=== PATIENT | male | born 1965 | race Caucasian/White ===

== ENCOUNTER 2016-12-11 01:13 | Emergency (ER) | payer OTHER ==
--- NOTE | 2016-12-11 05:33 | ED CLINICAL REPORT ---
Clinical Report - Physicians/Mid Levels [facility] [address] [place] [address] 12/11/2016 1:12 Patient: RUBEN CAMEJO Time Seen: 0116. Arrived- By ambulance. Historian- patient and EMS personnel. HISTORY OF PRESENT ILLNESS Chief Complaint: found down. This occurred today. No toxic symptoms present. No toxic symptoms present. (reports drinking > 6 drinks tonight). No situational problems. Alcohol consumption recently. The symptoms are described as moderate. Has not been depressed or upset. No anger or suicidal thoughts. ([place] needed bag valve mask per EMS. Given 2 mg narcan intranasal which helped.). Similar symptoms previously: None. Recent medical care: Not recently seen/assessed. REVIEW OF SYSTEMS No headache, chest pain, palpitations, abdominal pain or vomiting. No diarrhea, fever or skin rash. All systems otherwise negative, except as recorded above. PAST HISTORY See nurses notes. Medications: Prevacid Oral. Allergies: No Known Drug Allergy. SOCIAL HISTORY Smoker- current status unknown (occasional). Alcohol use. No drug use. Has social support. Has place to stay. FAMILY HISTORY Negative. ADDITIONAL NOTES The nursing notes have been reviewed. PHYSICAL EXAM Vital Signs: 12/11/2016 01:16 BP: 132/88. HR: 99. RR: 16. O2 saturation: 88%. Temp: 98.0 F. Blood pressure normal. Oxygen saturation normal. Appearance: Alert. No acute distress. Eyes: Pupils equal, round and reactive to light. No nystagmus. Extraocular movements normal. ENT: Normal ENT inspection. TM's normal. Pharynx normal. Neck: Normal inspection. Neck supple. No meningeal signs. (no step offs. no crepitus. no tenderness.). CVS: Normal heart rate and rhythm. Heart sounds normal. Pulses normal. Respiratory: No respiratory distress. Breath sounds normal. Abdomen: Soft and nontender. No organomegaly. Back: Normal inspection. Skin: Skin warm and dry. Normal skin color. No rash. Normal skin turgor. Extremities: Extremities exhibit normal ROM. No lower extremity edema. Neuro: Alert. Oriented X 3. Mood/affect normal. Speech normal. Cranial nerves normal (as tested). No cerebellar findings. No motor deficit. No sensory deficit. Reflexes normal. LABS, X-RAYS, AND EKG Laboratory Tests: UA-Culture if indicated: (TINO: 12/11/2016 03:20) ( AzgRcvd 12/11/2016 03:48) Final results Test Result Flag Units (Reference) URINE COLOR YELLOW URINE APPEARANCE CLEAR URINE GLUCOSE NEGATIVE (NEGATIVE) URINE BILIRUBIN NEGATIVE (NEGATIVE) URINE KETONE NEGATIVE (NEGATIVE) URINE SPECIFIC GRAVITY >= 1.030 (1.010-1.030) URINE PH 6.0 (5.0-8.0) URINE PROTEIN NEGATIVE (NEGATIVE) URINE UROBILINOGEN 0.2 EU/dL (0.2-1.0) URINE NITRITE NEGATIVE (NEGATIVE) URINE BLOOD TRACE-INTACT (NEGATIVE) URINE LEUK ESTERASE NEGATIVE (NEGATIVE) URINE RBC 0-1 rbc/hpf (0-1) URINE WBC 0-1 wbc/hpf (0-1) URINE EPITHELIAL CELLS NONE SEEN EPI/hpf (0-5) URINE BACTERIA NONE SEEN (NONE SEEN) URINE COMMENT CULT NOT INDICATED URINE CULTURES ARE SET-UP BASED ON THE FOLLOWING CRITERIA:POSITIVE NITRITEPOSITIVE LEUKOCYTE ESTERASEGREATER THAN 10 WHITE BLOOD CELLSMODERATE (2+) OR GREATER BACTERIA CBC w Diff: (TINO: 12/11/2016 01:25) ( [facility] 12/11/2016 01:41) Final results Test Result Flag Units (Reference) WHITE BLOOD COUNT 10.5 K/uL (4.5-11.5) RED BLOOD COUNT 4.92 M/uL (4.50-5.90) HEMOGLOBIN 16.0 gm/dL (13.5-17.5) HEMATOCRIT 47.1 % (41.0-53.0) MEAN CELL VOLUME 96 fL (80-100) MEAN CORPUSCULAR HGB 33 pg (26-34) MEAN CORPUSCULAR HGB CONC 34 g/dL (31-37) RED CELL DISTRIBUTION WIDTH 15.9 H % (11.6-14.8) PLATELET COUNT 199 K/uL (150-400) NEUTROPHIL % 79.8 H % (50-75) LYMPH % 14.7 L % (25-40) MONO % 4.2 % (3-14) EOSINOPHIL % 0.9 % (0-4) BASOPHIL % 0.4 % (0-2) PT with INR: (TINO: 12/11/2016 01:25) ( MsgRcvd 12/11/2016 01:48) Final results Test Result Flag Units (Reference) INR 0.9 (0.8-1.2) Low Intensity Therapy: INR 1.5-2.0 PT range 18.5-23.1Mod.Intensity Therapy: INR 2.0-3.0 PT range 23.1-31.5High Intensity Therapy: INR 2.5-3.5 PT range 27.4-35.5High Intensity Therapy 2: INR 3.0-4.0 PT range 31.5-39.3 Urine Drug Screen: (TINO: 12/11/2016 03:20) ( MsgRcvd 12/11/2016 03:49) Final results Test Result Flag Units (Reference) AMPHETAMINE/METHAMPHETAMINE NEGATIVE (NEGATIVE) BARBITURATE NEGATIVE (NEGATIVE) BENZODIAZEPINE NEGATIVE (NEGATIVE) CANNABINOID NEGATIVE (NEGATIVE) COCAINE NEGATIVE (NEGATIVE) ECSTASY NEGATIVE (NEGATIVE) METHADONE NEGATIVE (NEGATIVE) OPIATE POSITIVE H (NEGATIVE) The urine drug screen is a qualitative screening test fordrug overdose and abuse. All screen results should beconsidered as presumptive.Drugs screened for are as follows:BenzodiazepinesCocaineAmphetamines/MetamphetaminesTHC (Tetrahydrocannabinol)OpiatesBarbituratesEcstasyMethadonePositive results are unconfirmed. For confirmation, notifythe lab for the specimen to be sent to the reference lab.All confirmations must be performed by a differentmethodology.The ingestion of natural herbal and plant productscontaining Ephedra/Ephedra metabolites can produce in urineone or more substances capable of cross reacting withamphetamine/methamphetamine immunoassays. These testsprovide a preliminary result only. A more specificalternative chemical method must be used to obtain aconfirmed analytical result. Salicylate Level: (TINO: 12/11/2016 01:25) ( MsgRcvd 12/11/2016 01:54) Final results Test Result Flag Units (Reference) SALICYLATE <2.8 L mg/dL (2.8-20) CMP: (TINO: 12/11/2016 01:25) ( MsgRcvd 12/11/2016 03:05) Final results Test Result Flag Units (Reference) GLUCOSE 206 H mg/dL (70-110) BUN 14 mg/dL (7-18) CREATININE 1.5 H mg/dL (0.6-1.3) Estimated GFR 52.87 mL/min Estimated GFR- >60 mL/min Note: Persistent reduction over 3 months in eGFR<60 mL/min/1.73 m2 defines CKD. Patients with eGFR values>=60 mL/min/1.73 m2 may also have CKD if evidence ofpersistent proteinuria. Additional information may be foundat www.kidney.org. SODIUM 139 mmol/L (136-145) POTASSIUM 3.8 mmol/L (3.5-5.1) CHLORIDE 104 mmol/L (98-107) CARBON DIOXIDE 24 mmol/L (21-32) CALCIUM 8.1 L mg/dL (8.5-10.1) TOTAL PROTEIN 7.5 g/dL (6.4-8.2) ALBUMIN 3.9 g/dL (3.3-5.0) BILIRUBIN, TOTAL 0.3 mg/dL (0.0-1.0) ALKALINE PHOSPHATASE 49 U/L (46-116) AST (SGOT) 57 H U/L (15-37) ALT (SGPT) 91 H U/L (12-78) ACETAMINOPHEN < 2.0 L ug/mL (10-30) ETHYL ALCOHOL 82 H mg/dL (3-10) THYROID STIMULATING HORMONE 5.823 H uIU/mL (0.34-3.74) . PROGRESS AND PROCEDURES Course of Care: The patient is a pleasant 51-year-old male with no pertinent past medical history presenting for evaluation of altered mental status. The patient was found in a state requiring bag valve mask. Patient was also given Narcan in the field. Per EMS, patient was about to be intubated howeverrecovered prior to needing intubation. Signs and symptoms are consistent with opioid type overdose. Patient will be monitored here in the hospital for further worsening of his symptoms and possible re-dosing of the Narcan. Patient is agreeable to the treatment and plan. Patient however doesdeny any illicit substances except for alcohol. Urine drug screen will be ordered for evaluation of possibleothercoingestants. We'll also orderelectrolytes andtoxicpanel. Workup does not show any acute abnormalities except for slightly elevated alcohol level as well as oprug screen. This is likely the patient's cause for his altered mental status and respiratory failure. Patient isalert and oriented and did not have any signs of respiratory depression while here in the emergency department. After monitoring patient here in the emergency department, patient has been deemedstable for outpatient management. Had long discussion with patient in regards to substance abuse and potentially life threateningexposure that occurred today. Explained to patient the dangers of narcotics and opioid medications. Patient is agreeable to treatment plan. CLINICAL IMPRESSION Accidental multi-drug overdose (alcohol and narcotics). 12/11/2016 05:27 BP: 97/50. HR: 84. RR: 16. O2 saturation: 95%. Blood pressure normal. Oxygen saturation normal. Mild dehydration (acute). respiratory failure, acute resolved. INSTRUCTIONS Warnings: GENERAL WARNINGS: Return or contact your physician immediately if your condition worsens or changes unexpectedly, if not improving as expected, or if other problems arise. Specifically return if pain, vomiting, bleeding, breathing difficulty or fever. Your Current Medications: CONTINUE TAKING THE FOLLOWING MEDICATIONS: Prevacid Oral. Follow-up: Return to the emergency department as needed. Follow up with your doctor in three days. Reason for referral: recheck today's concerns. Summary of care provided to patient via paper. Screening today revealed the patient's blood pressure to be in the normal range. The patient should follow up with a primary care provider for blood pressure management. Understanding of the discharge instructions verbalized by patient. (Electronically signed by Suman Fowler Dr. 12/11/2016 8:36)
--- NOTE | 2016-12-11 05:34 | ED ORDER SUMMARY ---
..... Patient: RUBEN CAMEJO OrderSheet [facility] VisitID: [id number] [address] [place] [address] 51y, M Registration Date/Time: 12/11/2016 ORDER SHEET Weight: 104.7 kg (stated) Allergies: No Known Drug Allergy GENERAL ORDERS: CBC w Diff Urgent (:12/11/2016 Omar Garsia) (Ack 1:26 AMcQuoid ER Tech1) (1:30 EInderbitzen R.N.) CMP Urgent (:12/11/2016 Omar Garsia) (Ack 1:26 AMcQuoid ER Tech1) (1:30 EInderbitzen R.N.) Urine Drug Screen Urgent (12/11/2016 Omar Garsia) (Ack 1:26 AMcQuoid ER Tech1) (3:23 EInderbitzen R.N.) UA-Culture if indicated Urgent (12/11/2016 Omar Garsia) (Ack 1:26 AMcQuoid ER Tech1) (3:23 EInderbitzen R.N.) PT with INR Urgent (12/11/2016 Omar Garsia) (Ack 1:26 AMcQuoid ER Tech1) (1:30 EInderbitzen R.N.) Salicylate Level Urgent (:12/11/2016 Omar Garsia) (Ack 1:26 AMcQuoid ER Tech1) (1:30 EInderbitzen R.N.) TSH Urgent (:12/11/2016 Omar Garsia) (Ack 1:26 AMcQuoid ER Tech1) (1:30 EInderbitzen R.N.) Acetaminophen Level Urgent (12/11/2016 Omar Garsia) (Ack 1:26 AMcQuoid ER Tech1) (1:30 EInderbitzen R.N.) Ethyl Alcohol Urgent (12/11/2016 Omar Garsia) (Ack 1:26 AMcQuoid ER Tech1) (1:30 EInderbitzen R.N.) Pulse oximeter (12/11/2016 Omar Garsia) (Ack 1:26 AMcQuoid ER Tech1) (1:30 EInderbitluz marina R.N.) POC Glucose (:12/11/2016 Omar Garsia) (1:31 EInderclaudette R.N.) MEDICATION ORDERS: IV FLUIDS: IV NS : initial bolus 1000 mL (1000 mL/hr), then none - for X1 (NOW) (:12/11/2016 Omar Garsia) (1:44 EInderbitluz marina R.N.) Zofran IV 4 mg (NOW) (:12/11/2016 EIxiomara R.N. verbal order read back to Omar Garsia) (3:26 EInderclaudette R.N.) IV NS : initial bolus 1000 mL (1000 mL/hr), then none - for X1 (NOW) (05:19 12/11/2016 Omar Garsia) (5:27 EInderclaudette R.N.) ORDER SHEET NOTES: [Electronically signed by Debbie Vaughn R.N. (05:44 12/11/2016)] [Electronically signed by Suman Fowler Dr. (08:36 12/11/2016)] [Electronically locked/signed by Debbie Vaughn R.N. (05:44 12/11/2016)]
--- NOTE | 2016-12-11 05:34 | ED ORDER SUMMARY ---
..... Patient: RUBEN CAMEJO OrderSheet [facility] VisitID: [id number] [address] [place] [address] 51y, M Registration Date/Time: 12/11/2016 ORDER SHEET Weight: 104.7 kg (stated) Allergies: No Known Drug Allergy GENERAL ORDERS: CBC w Diff Urgent (:12/11/2016 Omar Garsia) (Ack 1:26 AMcQuoid ER Tech1) (1:30 EInderbitzen R.N.) CMP Urgent (:12/11/2016 Omar Garsia) (Ack 1:26 AMcQuoid ER Tech1) (1:30 EInderbitzen R.N.) Urine Drug Screen Urgent (12/11/2016 Omar Garsia) (Ack 1:26 AMcQuoid ER Tech1) (3:23 EInderbitzen R.N.) UA-Culture if indicated Urgent (12/11/2016 Omar Garsia) (Ack 1:26 AMcQuoid ER Tech1) (3:23 EInderbitzen R.N.) PT with INR Urgent (12/11/2016 Omar Garsia) (Ack 1:26 AMcQuoid ER Tech1) (1:30 EInderbitzen R.N.) Salicylate Level Urgent (:12/11/2016 Omar Garsia) (Ack 1:26 AMcQuoid ER Tech1) (1:30 EInderbitzen R.N.) TSH Urgent (:12/11/2016 Omar Garsia) (Ack 1:26 AMcQuoid ER Tech1) (1:30 EInderbitzen R.N.) Acetaminophen Level Urgent (12/11/2016 Omar Garsia) (Ack 1:26 AMcQuoid ER Tech1) (1:30 EInderbitzen R.N.) Ethyl Alcohol Urgent (12/11/2016 Omar Garsia) (Ack 1:26 AMcQuoid ER Tech1) (1:30 EInderbitzen R.N.) Pulse oximeter (12/11/2016 Omar Garsia) (Ack 1:26 AMcQuoid ER Tech1) (1:30 EInderbitluz marina R.N.) POC Glucose (:12/11/2016 Omar Garsia) (1:31 EInderclaudette R.N.) MEDICATION ORDERS: IV FLUIDS: IV NS : initial bolus 1000 mL (1000 mL/hr), then none - for X1 (NOW) (:12/11/2016 Omar Garsia) (1:44 EInderbitluz marina R.N.) Zofran IV 4 mg (NOW) (:12/11/2016 EIxiomara R.N. verbal order read back to Omar Garsia) (3:26 EInderclaudette R.N.) IV NS : initial bolus 1000 mL (1000 mL/hr), then none - for X1 (NOW) (05:19 12/11/2016 Omar Garsia) (5:27 EInderclaudette R.N.) ORDER SHEET NOTES: [Electronically signed by Debbie Vaughn R.N. (05:44 12/11/2016)] [Electronically signed by Suman Fowler Dr. (08:36 12/11/2016)] [Electronically locked/signed by Debbie Vaughn R.N. (05:44 12/11/2016)]
--- NOTE | 2016-12-11 05:34 | ED NURSING NOTES ---
Clinical Report - Nurses [facility] [address] [place] [address] 12/11/2016 1:12 Patient: RUBEN CAMEJO TRIAGE Triage time 01:Dec 11 2016. Acuity: LEVEL 3. Chief Complaint: DRUG OVERDOSE. 01:16 12/11/16. SEPSIS SCREEN: Sepsis Screen. Negative (no infection suspected/documented). SURYA COMA SCORE: Surya Coma Scale: 15- eyes open spontaneously (4); best verbal response- oriented x 4 (5); best motor response- obeys commands (6). --01:21 Debbie Vaughn R.N. 01:16 12/11/16. BP: 132/88. HR: 99. RR: 16. O2 saturation: 88% on room air. Temp: 98.0 F. Pain level now 0/10. --01:21 Debbie Vaughn R.N. Weight: 104.7 kg stated. Height/Length: 72 inches Per Patient. BMI: 31.3. --01:16 Debbie Vaughn R.N. Medications Prevacid Oral. --01:32 Debbie Vaughn R.N. Allergies No Known Drug Allergy. --01:32 Debbie Vaughn R.N. Medication/allergy information source: the patient. --01:21 Debbie Vaughn R.N. History Arrived by EMS. Historian: patient. This occurred just prior to arrival. ( Was found by EMS in hotel room at [facility]. EMS gave 2 mg intranasal narcan and woke up. Patient denies any narcotic use). No loss of consciousness. No depression, suicidal thoughts, seizure or vomiting. Denies having hallucinations. 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 Medications given- (Narcan 2 mg intranasally). SOCIAL HX: Light tobacco smoker (cigarette)- less than 1/2 a pack per day. Occasional alcohol use. History of drug use. (denies). No infectious disease exposure. ABUSE ASSESSMENT: No report of abuse. NUTRITIONAL RISK ASSESSMENT: The nutritional risk assessment revealed no deficiencies. FUNCTIONAL ASSESSMENT: Functional assessment: no impairments noted. LEARNING NEEDS ASSESSMENT: The learning needs assessment revealed no barriers. SKIN INTEGRITY ASSESSMENT: Skin integrity risk assessment completed. No skin integrity risk identified. --01:21 Debbie Vaughn R.N. PROBLEMS: Hypercholesterolemia. Keratitis. --01:32 Debbie Vaughn R.N. ADDITIONAL SURGERIES: Vasectomy. --01:32 Debbie Vaughn R.N. Interventions ID band on patient. --01:21 Debbie Vaughn R.N. NURSING PROGRESS NOTES 01:22 12/11/16. Cardiac rhythm: normal sinus rhythm. The initial plan of care for this patient includes an assessment with efforts to address patient positioning and comfortable environmental temperature; impairment of the cardiovascular system. This plan of care was discussed with the patient. Oxygen administered by nasal cannula at 2 liters. Patient gowned. Reassurance given. Patient identifiers checked. Call light placed in reach. Side rails up x 1. Bed placed in lowest position. Brakes of bed on. Patient ready for evaluation. --01:22 Debbie Vaughn R.N. ( CBG 189). --01:33 Karl Oshea R.N. 01:30 12/11/2016 Site #1 started prior to arrival by EMS via IV in the left forearm with an 18g angiocath. --01:43 Debbie Vaughn R.N. 01:40 12/11/2016 Started bag #1 1000 mL IV Fluids IV NS (Saline); at 1000 mL/hr over 1 hour(s) via site #1. Allergies verified and confirmed 5 rights. IV patency established. IV site checked: no pain, redness, or swelling. IV flushed thoroughly pre- and post-medication administration. --01:44 Debbie Vaughn R.N. 03:20 12/11/16. Patient ID band checked for patient name and birthdate: patient confirmed. Instructions provided to collect clean catch urine and patient verbalized understanding. Clean catch urine collected with return of yellow-colored urine; sample sent to lab for urinalysis and drug screen. Specimen labeled in the presence of the patient. --03:24 Debbie Vaughn R.N. 03:20 12/11/16. Reassessment after fluids administered. He reports no complaints. Overall patient status is the same- he states feels the same. GENERAL / NEURO / PSYCH: Alert. Oriented X 4. RESPIRATORY: No respiratory distress. GI / : The patient reports nausea. Emesis noted. --03:25 Debbie Vaughn R.N. 03:23 12/11/2016 IV Fluids IV NS Discontinued: bag #1 completed. Total amount infused: 1000 mL. --03:23 Debbie Vaughn R.N. 03:24 12/11/2016 Zofran (Ondansetron HCl) IVP 4 mg given over 1 minute(s) via site #1. Allergies verified and confirmed 5 rights. IV patency established. IV site checked: no pain, redness, or swelling. IV flushed thoroughly pre- and post-medication administration. IVP given by RN. --03:26 Debbie Vaughn R.N. 03:52 12/11/16. ( Patient inquired when he could leave. RN explained that he would need monitored for 4-6 hours as he had been given narcotic reversal, there is potential for resedation.). --03:52 Debbie Vaughn R.N. 04:14 12/11/16. The patient reports no complaints. GENERAL / NEURO / PSYCH: Alert. Oriented X 4. GI / : No vomiting noted. SKIN: Skin is warm and dry. Skin color within normal limits. --04:14 Debbie Vaughn R.NSimi 05:27 12/11/16. BP: 97/50. HR: 84. RR: 16. O2 saturation: 95%. Pain level now 0/10. --05:27 Debbie Vaughn R.NSimi 05:20 12/11/2016 Started bag #1 1000 mL IV Fluids IV NS (Saline); at 1000 mL/hr over 1 hour(s) via site #1. Allergies verified and confirmed 5 rights. IV patency established. IV site checked: no pain, redness, or swelling. IV flushed thoroughly pre- and post-medication administration. --05:27 Debbie Vaughn R.N. 05:27 12/11/16. The patient reports no complaints and he is calm and resting quietly. ( Patient removed oxygen). --05:27 Debbie Vaughn R.N. DISPOSITION / DISCHARGE 05:43 12/11/2016 Site #1 removed upon discharge. Catheter intact. Pressure dressing applied. --05:43 Debbie Vaughn R.N. 05:43 12/11/2016 IV Fluids IV NS Discontinued: discontinued upon discharge. Total amount infused: 500 mL. IV patency established. IV site checked: no pain, redness, or swelling. IV flushed thoroughly. --05:43 Debbie Vaughn R.N. 05:44 12/11/16. Departure time: 05:44 Dec 11 2016. Condition at departure: improved and stable. The goals identified in the patient's plan of care were met. No learning barriers present. Discharge instructions provided and reviewed with the patient. Patient verbalized understanding. Written instructions provided in Ukrainian. The patient was discharged home and accompanied by spouse. He left the Emergency Department ambulatory and via private vehicle. 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 --05:44 Debbie Vaughn R.N. 05:44 12/11/16. BP: 105/56. HR: 84. RR: 16. O2 saturation: 97%. Temp: 98.5 F. Pain level now 0/10. --05:44 Debbie Vaughn R.N. Locked/Released at 12/11/2016 5:44 by Debbie Vaughn R.N.
--- NOTE | 2016-12-11 05:34 | ED NURSING NOTES ---
Clinical Report - Nurses [facility] [address] [place] [address] 12/11/2016 1:12 Patient: RUBEN CAMEJO TRIAGE Triage time 01:Dec 11 2016. Acuity: LEVEL 3. Chief Complaint: DRUG OVERDOSE. 01:16 12/11/16. SEPSIS SCREEN: Sepsis Screen. Negative (no infection suspected/documented). SURYA COMA SCORE: Surya Coma Scale: 15- eyes open spontaneously (4); best verbal response- oriented x 4 (5); best motor response- obeys commands (6). --01:21 Debbie Vaughn R.N. 01:16 12/11/16. BP: 132/88. HR: 99. RR: 16. O2 saturation: 88% on room air. Temp: 98.0 F. Pain level now 0/10. --01:21 Debbie Vaughn R.N. Weight: 104.7 kg stated. Height/Length: 72 inches Per Patient. BMI: 31.3. --01:16 Debbie Vaughn R.N. Medications Prevacid Oral. --01:32 Debbie Vaughn R.N. Allergies No Known Drug Allergy. --01:32 Debbie Vaughn R.N. Medication/allergy information source: the patient. --01:21 Debbie Vaughn R.N. History Arrived by EMS. Historian: patient. This occurred just prior to arrival. ( Was found by EMS in hotel room at [facility]. EMS gave 2 mg intranasal narcan and woke up. Patient denies any narcotic use). No loss of consciousness. No depression, suicidal thoughts, seizure or vomiting. Denies having hallucinations. Treatment FUNDRAISING MANAGER: Oxygen administered by nasal cannula. Medications given- (Narcan 2 mg intranasally). SOCIAL HX: Light tobacco smoker (cigarette)- less than 1/2 a pack per day. Occasional alcohol use. History of drug use. (denies). No infectious disease exposure. ABUSE ASSESSMENT: No report of abuse. NUTRITIONAL RISK ASSESSMENT: The nutritional risk assessment revealed no deficiencies. FUNCTIONAL ASSESSMENT: Functional assessment: no impairments noted. LEARNING NEEDS ASSESSMENT: The learning needs assessment revealed no barriers. SKIN INTEGRITY ASSESSMENT: Skin integrity risk assessment completed. No skin integrity risk identified. --01:21 Debbie Vaughn R.N. PROBLEMS: Hypercholesterolemia. Keratitis. --01:32 Debbie Vaughn R.N. ADDITIONAL SURGERIES: Vasectomy. --01:32 Debbie Vaughn R.N. Interventions ID band on patient. --01:21 Debbie Vaughn R.N. NURSING PROGRESS NOTES 01:22 12/11/16. Cardiac rhythm: normal sinus rhythm. The initial plan of care for this patient includes an assessment with efforts to address patient positioning and comfortable environmental temperature; impairment of the cardiovascular system. This plan of care was discussed with the patient. Oxygen administered by nasal cannula at 2 liters. Patient gowned. Reassurance given. Patient identifiers checked. Call light placed in reach. Side rails up x 1. Bed placed in lowest position. Brakes of bed on. Patient ready for evaluation. --01:22 Debbie Vaughn R.N. ( CBG 189). --01:33 Karl Oshea R.N. 01:30 12/11/2016 Site #1 started prior to arrival by EMS via IV in the left forearm with an 18g angiocath. --01:43 Debbie Vaughn R.N. 01:40 12/11/2016 Started bag #1 1000 mL IV Fluids IV NS (Saline); at 1000 mL/hr over 1 hour(s) via site #1. Allergies verified and confirmed 5 rights. IV patency established. IV site checked: no pain, redness, or swelling. IV flushed thoroughly pre- and post-medication administration. --01:44 Debbie Vaughn R.N. 03:20 12/11/16. Patient ID band checked for patient name and birthdate: patient confirmed. Instructions provided to collect clean catch urine and patient verbalized understanding. Clean catch urine collected with return of yellow-colored urine; sample sent to lab for urinalysis and drug screen. Specimen labeled in the presence of the patient. --03:24 Debbie Vaughn R.N. 03:20 12/11/16. Reassessment after fluids administered. He reports no complaints. Overall patient status is the same- he states feels the same. GENERAL / NEURO / PSYCH: Alert. Oriented X 4. RESPIRATORY: No respiratory distress. GI / : The patient reports nausea. Emesis noted. --03:25 Debbie Vaughn R.N. 03:23 12/11/2016 IV Fluids IV NS Discontinued: bag #1 completed. Total amount infused: 1000 mL. --03:23 Debbie Vaughn R.N. 03:24 12/11/2016 Zofran (Ondansetron HCl) IVP 4 mg given over 1 minute(s) via site #1. Allergies verified and confirmed 5 rights. IV patency established. IV site checked: no pain, redness, or swelling. IV flushed thoroughly pre- and post-medication administration. IVP given by RN. --03:26 Debbie Vaughn R.N. 03:52 12/11/16. ( Patient inquired when he could leave. RN explained that he would need monitored for 4-6 hours as he had been given narcotic reversal, there is potential for resedation.). --03:52 Debbie Vaughn R.N. 04:14 12/11/16. The patient reports no complaints. GENERAL / NEURO / PSYCH: Alert. Oriented X 4. GI / : No vomiting noted. SKIN: Skin is warm and dry. Skin color within normal limits. --04:14 Debbie Vaughn R.NSimi 05:27 12/11/16. BP: 97/50. HR: 84. RR: 16. O2 saturation: 95%. Pain level now 0/10. --05:27 Debbie Vaughn R.NSimi 05:20 12/11/2016 Started bag #1 1000 mL IV Fluids IV NS (Saline); at 1000 mL/hr over 1 hour(s) via site #1. Allergies verified and confirmed 5 rights. IV patency established. IV site checked: no pain, redness, or swelling. IV flushed thoroughly pre- and post-medication administration. --05:27 Debbie Vaughn R.N. 05:27 12/11/16. The patient reports no complaints and he is calm and resting quietly. ( Patient removed oxygen). --05:27 Debbie Vaughn R.N. DISPOSITION / DISCHARGE 05:43 12/11/2016 Site #1 removed upon discharge. Catheter intact. Pressure dressing applied. --05:43 Debbie Vaughn R.N. 05:43 12/11/2016 IV Fluids IV NS Discontinued: discontinued upon discharge. Total amount infused: 500 mL. IV patency established. IV site checked: no pain, redness, or swelling. IV flushed thoroughly. --05:43 Debbie Vaughn R.N. 05:44 12/11/16. Departure time: 05:44 Dec 11 2016. Condition at departure: improved and stable. The goals identified in the patient's plan of care were met. No learning barriers present. Discharge instructions provided and reviewed with the patient. Patient verbalized understanding. Written instructions provided in Maldivian. The patient was discharged home and accompanied by spouse. He left the Emergency Department ambulatory and via private vehicle. Emergency Response Technician driving. --05:44 Debbie Vaughn R.N. 05:44 12/11/16. BP: 105/56. HR: 84. RR: 16. O2 saturation: 97%. Temp: 98.5 F. Pain level now 0/10. --05:44 Debbie Vaughn R.N. Locked/Released at 12/11/2016 5:44 by Debbie Vaughn R.N.
--- NOTE | 2016-12-11 08:36 | ED MAR SUMMARY ---
..... Medication Administration Record [facility] [address] [place] [address] Patient: RUBEN CAMEJO Visit ID: [id number] 51y, M Weight: 104.7 kg Height/Length: 72 in BMI: 31.3 ALLERGIES: No Known Drug Allergy Start 01:40 12/11/2016 Debbie Vaughn R.N., Stop 03:23 12/11/2016 Debbie Vaughn R.N. Medication Administered: IV NS (SALINE), Dose: IV Fluids over 1 hour(s), Rate: 1000 mL/hr, Dispensed: 1000 mL bag, Site: #1 left forearm. Medication Ordered: IV NS : initial bolus 1000 mL (1000 mL/hr), then none - for X1 (NOW). Given 03:24 12/11/2016 Debbie Vaughn R.N. Medication Administered: ZOFRAN [IVP] (ONDANSETRON HCL), Dose: 4 mg IVP over 1 minute(s), Site: #1 left forearm. Medication Ordered: Zofran IV 4 mg (NOW). Start 05:20 12/11/2016 Debbie Vaughn R.N., Stop 05:43 12/11/2016 Debbie Vaughn R.N. Medication Administered: IV NS (SALINE), Dose: IV Fluids over 1 hour(s), Rate: 1000 mL/hr, Dispensed: 1000 mL bag, Site: #1 left forearm. Medication Ordered: IV NS : initial bolus 1000 mL (1000 mL/hr), then none - for X1 (NOW).
--- NOTE | 2016-12-11 08:36 | ED MED RECONCILIATION SUMMARY ---
Patient: RUBEN CAMEJO Medication Reconciliation Report [facility] VisitID: [id number] [address] [place] [address] 51y, M Registration Date/Time: 12/11/2016 Weight: 104.7 kg Height/Length: 72 in. BMI: 31.3 ALLERGIES: No Known Drug Allergy The patient's Home Medications are listed below: CONTINUE TAKING THE FOLLOWING MEDICATIONS: Prevacid Oral The source(s) of the original Home Medication information: patient The following Medications were given to the patient in the Emergency Department: IV NS IV Fluids bolus 0, then 1000 mL/hr, administered: 12/11/2016 1:40:00 AM Zofran [IVP] IVP 4 mg, administered: 12/11/2016 3:24:00 AM IV NS IV Fluids bolus 0, then 1000 mL/hr, administered: 12/11/2016 5:20:00 AM The following Medications were prescribed to the patient: None.
--- NOTE | 2016-12-11 08:36 | ED MAR SUMMARY ---
..... Medication Administration Record [facility] [address] [place] [address] Patient: RUBEN CAMEJO Visit ID: [id number] 51y, M Weight: 104.7 kg Height/Length: 72 in BMI: 31.3 ALLERGIES: No Known Drug Allergy Start 01:40 12/11/2016 Debbie Vaughn R.N., Stop 03:23 12/11/2016 Debbie Vaughn R.N. Medication Administered: IV NS (SALINE), Dose: IV Fluids over 1 hour(s), Rate: 1000 mL/hr, Dispensed: 1000 mL bag, Site: #1 left forearm. Medication Ordered: IV NS : initial bolus 1000 mL (1000 mL/hr), then none - for X1 (NOW). Given 03:24 12/11/2016 Debbie Vaughn R.N. Medication Administered: ZOFRAN [IVP] (ONDANSETRON HCL), Dose: 4 mg IVP over 1 minute(s), Site: #1 left forearm. Medication Ordered: Zofran IV 4 mg (NOW). Start 05:20 12/11/2016 Debbie Vaughn R.N., Stop 05:43 12/11/2016 Debbie Vaughn R.N. Medication Administered: IV NS (SALINE), Dose: IV Fluids over 1 hour(s), Rate: 1000 mL/hr, Dispensed: 1000 mL bag, Site: #1 left forearm. Medication Ordered: IV NS : initial bolus 1000 mL (1000 mL/hr), then none - for X1 (NOW).
--- NOTE | 2016-12-11 08:36 | ED DISCHARGE INSTRUCTIONS ---
Patient: RUBEN CAMEJO General Instructions [facility] VisitID: [id number] [address] [place] [address] 51y, M Registration Date/Time: 12/11/2016 Accidental multi-drug overdose (alcohol and narcotics). 12/11/2016 05:27 BP: 97/50. HR: 84. RR: 16. O2 saturation: 95%. Blood pressure normal. Oxygen saturation normal. Mild dehydration (acute). respiratory failure, acute resolved. INSTRUCTIONS Warnings: GENERAL WARNINGS: Return or contact your physician immediately if your condition worsens or changes unexpectedly, if not improving as expected, or if other problems arise. Specifically return if pain, vomiting, bleeding, breathing difficulty or fever. Your Current Medications: CONTINUE TAKING THE FOLLOWING MEDICATIONS: Prevacid Oral. Follow-up: Return to the emergency department as needed. Follow up with your doctor in three days. Reason for referral: recheck today's concerns. Summary of care provided to patient via paper. Screening today revealed the patient's blood pressure to be in the normal range. The patient should follow up with a primary care provider for blood pressure management. Understanding of the discharge instructions verbalized by patient. ADDITIONAL INFORMATION Accidental Ingestion:Non-Toxic [Adult] You have been evaluated and treated for taking too much of a medicine or swallowing a chemical product. There is no sign of toxic effect at this time. It is very unlikely that any new symptoms will appear. As a safeguard, you must be alert for symptoms during the next 24 hours (see below). The exact symptom will depend on what was swallowed. Home Care: If LIQUID CHARCOAL was given to neutralize what was swallowed, it will cause a black color to the stools for 1-2 days. Usually, a laxative (sorbitol) is given with charcoal to speed the removal of any toxins from the intestinal tract. This may cause diarrhea for up to 24 hours. If no laxative was given with charcoal, you may get constipated. If this occurs, you may take an [id number]-qay-[id number] laxative such as Dulcolax pills or suppository. Prevention: Keep medicines, pesticides, and other household chemicals in their original containers. Clearly sherwin all harmful products if a different bottle is used. Follow Up with your doctor if all symptoms do not resolve within 24 hours or if constipation is not relieved by one or two doses of laxatives. Get Prompt Medical Attention if any of the following occur: Excess drowsiness or inability to be awakened Rapid heart beat, shakiness or seizure Fast breathing (over 25 breaths/minute) or slow breathing (less than 8 breaths/minute) Feeling shortness of breath Fever of 100.4F (38C) or higher, or as directed by your healthcare provider Vomiting or diarrhea for more than 24 hours Blood in stools or vomit (black or red color) Chest or abdominal pain Dizziness, weakness or fainting Alcohol Overdose You have overdosed on alcohol. This means you drank a large amount of alcohol in a short period of time.An alcohol overdose is a serious condition. It can cause coma and even ! It puts you at risk for vomiting and aspiration (when the vomit is breathed into your lungs!). Aspiration causes a severe pneumonia that can be fatal. An alcohol overdose can be a result of not understanding the powerful effects of alcohol. But it can also be a sign of depression or excessive anger at yourself or another person. If you feel that there are emotional reasons for this overdose, we advise that you have an evaluation by a psychiatrist, counselor or therapist. Home Care: Do not drink any more alcohol. DO NOT DRIVE until all effects of the alcohol have worn off. Get lots of rest over the next few days and drink lots of water and other non-alcoholic liquids. Try to eat regular meals. If you have been drinking heavily on a daily basis, you may go through ALCOHOL WITHDRAWAL, also called the shakes or DTs. The usual symptoms last 3-4 days and may include nausea, sweating, sleeplessness, nervousness, shakiness or seizure. During this time, it is best that you stay with family or friends who can help and support you. You can also admit yourself to a residential detox program. Heavy regular drinking combined with poor nutrition can lead to a thiamine deficiency and cause permanent brain damage.If you are unable to stop drinking, it is important that you take daily vitamins. Follow Up: If alcohol is causing a problem in your life, the following organizations are available to help: Alcoholics Anonymous offers support through a self-help fellowship.There are no dues or fees. See the Yellow Pages and call for time and place of meetings. www.aa.org [place] offers support to families of alcohol users.398-662-7129qly.saray-mae.org National [place] on Alcoholism and Drug Dependencewww.ncadd.tll685-022742-613- 8591 Residential alcohol detox programs are available. Check the Yellow Pages under Drug Abuse & Treatment Centers. Return Promptly or contact your doctor if any of the following occur: Severe shakiness or seizure (convulsion) Fever over 100.4 F (38C) Confusion or hallucinations (seeing, hearing or feeling things that aren't there) Increasing upper abdominal pain Repeated vomiting or vomiting blood Opiate Overdose You have been treated for an overdose of opiates (such as a prescription pain medicine or heroin).Taking too much opiates is dangerous because they cause breathing to slow and possibly stop.If you stop breathing for more than 2-3 minutes, your heart will stop and you will . If your overdose was severe, you may have received an antidote called Narcan (naloxone). The antidote effect lasts for about 1-2 hours.If the opiate has not left your system by the time the Narcan wears off your symptoms may return (such as drowsiness and slow breathing). If you were addicted and physically dependent on opiates, then Narcan may cause withdrawal symptoms to appear immediately.These may consist of body aches, diarrhea, abdominal cramps, nausea, vomiting, runny nose, sneezing, sweating, yawning, restlessness, irritability, or trembling.These symptoms will go away as the Narcan wears off. Home Care Rest for the next [address] or operate any vehicle or dangerous equipment until all narcotic effects have worn off and you are no longer feeling sleepy or drowsy. If you were previously prescribed narcotic medicines for pain, do not take any more of this medicine for the next 6-8 hours, unless told otherwise. If narcotics or other drugs were swallowed, you may have been given liquid charcoal to neutralize those drugs.The charcoal may cause nausea and vomiting over the next few hours. It will also cause a black color to your stools for the next 1-2 days. Usually, a laxative is given with charcoal to speed the removal of any toxins from the intestinal tract. This may cause diarrhea for up to 24 hours. If no laxative was given, there may be a tendency toward constipation. If this occurs, you may take an qlrl-fys-cwbfony laxative such as Dulcolax pills or suppository, or Milk of Magnesia. Follow Up with your doctor if all symptoms do not resolve within 24 hours or if constipation is not relieved after two doses of laxatives.If your overdose was related to a drug addiction, seek drug counseling. Consider a drug treatment program to help you break your habit. Return Promptly or contact your doctor if any of the following occur: Excess drowsiness or inability to be awakened Slow breathing under 8 breaths per minute Shortness of breath or cough with colored sputum Fever over 100.4F (38.0C) oral Redness, swelling or tenderness at the heroin injection site Feeling that you might harm yourself or another Dehydration (Adult) Dehydration occurs when your body loses too much fluid. This may be the result of vomiting a lot or from diarrhea,sweating a lot, or a high fever. It may also happen if you dont drink enough fluid when youre sick. Misuse of diuretics (water pills) can also be a cause. Symptoms include thirst and feeling dizzy, weak, fatigued, or very drowsy. The diet described below is usually enough to treat most cases. Sometimes you may needmedicine. Home Care Follow these guidelines for home care: Drink at least 12 8-ounce glasses of fluid every day to overcome the dehydration. Fluid may include water; orange juice; lemonade; apple, grape, and cranberry juice; clear fruit drinks; electrolyte replacement and sports drinks; and teas and coffee without caffeine. If you have been diagnosed with a kidney disease, ask your doctor how much and what types of fluids you should drink to prevent dehydration. If you have kidney disease, drinking too much fluid can cause it build up in the your body and be dangerous to your health. If you have fever, muscle aching, or headache from a viral syndrome, you may useacetaminophen or ibuprofen, unless another medicine was prescribed for this.If you have chronic liver or kidney disease or ever had a stomach ulcer or GI bleeding, talk with your doctor before using these medicines. Don't take aspirin if you are younger than 18 and are ill with a fever.Aspirin raises the chance forsevere liver injury. Follow-up care Follow up with your health care provider if you don't get better in the next 24 to 48 hours. When to seek medical care Get prompt medical attention if any of theseoccur: Continued vomiting (cant keep liquids down) Frequent diarrhea (more than 5 times a day); blood (red or black color) or mucus in diarrhea Blood in vomit or stool Swollen abdomen or increasing abdominal pain Weakness, dizziness, or fainting Unusually drowsy or confused Reduced urine output or extreme thirst Fever of 100.4 F (38 C) oral or higher that does not get better with fever medication You have been given the following additional information: Overdose, Accidental (Adult) Alcohol Overdose Overdose, Opiate Dehydration (Adult) (Electronically signed by Suman Fowler Dr. 12/11/2016 8:36)
--- NOTE | 2016-12-11 08:36 | ED MED RECONCILIATION SUMMARY ---
Patient: RUBEN CAMEJO Medication Reconciliation Report [facility] VisitID: [id number] [address] [place] [address] 51y, M Registration Date/Time: 12/11/2016 Weight: 104.7 kg Height/Length: 72 in. BMI: 31.3 ALLERGIES: No Known Drug Allergy The patient's Home Medications are listed below: CONTINUE TAKING THE FOLLOWING MEDICATIONS: Prevacid Oral The source(s) of the original Home Medication information: patient The following Medications were given to the patient in the Emergency Department: IV NS IV Fluids bolus 0, then 1000 mL/hr, administered: 12/11/2016 1:40:00 AM Zofran [IVP] IVP 4 mg, administered: 12/11/2016 3:24:00 AM IV NS IV Fluids bolus 0, then 1000 mL/hr, administered: 12/11/2016 5:20:00 AM The following Medications were prescribed to the patient: None.
== END 2016-12-11 05:44 | disposition home or self-care (01) ==
LOC: ED SRH 01:13
DX: T40.2X1A Poisoning by other opioids, accidental (unintentional), initial encounter (principal); T40.601A Poisoning by unspecified narcotics, accidental (unintentional), initial encounter; T51.0X1A Toxic effect of ethanol, accidental (unintentional), initial encounter; J96.00 Acute respiratory failure, unspecified whether with hypoxia or hypercapnia; E86.0 Dehydration; F17.200 Nicotine dependence, unspecified, uncomplicated
CPT/HCPCS: 90004; 90100; 92010; 92760; 92761; 92762; 92763; 92764; 92765; 92766; 92767; 92780; 93140; 94060; 95059; 97000